=== PATIENT | female | born 1990 | race Caucasian/White ===

== ENCOUNTER 2017-01-04 15:35 | Emergency (ER) | payer BC ==
[~2017-01-04 15:35] MED LIST: Sodium Chloride 0.9% 1,000 ML BAG ONE
[2017-01-04] MEDS ORDERED: Lorazepam 2 MG/ML VIAL ONE (16:03)
[2017-01-04 16:21] LABS: #Basophils 0.1 thou/uL (0.0-0.2); #Eosinphils 0.1 thou/uL (0.0-0.7); #Lymphocytes 1.6 thou/uL (1.20-3.40); #Monocytes 0.6 thou/uL (0.11-0.59); #Neutrophils 5.2 thou/uL (1.40-6.50); %Basophils 1.3 % (0.0-1.0); %Eosinophils 1.7 % (0.0-10.0); %Lymphocytes 21.3 % (21.0-51.0); %Monocytes 8.2 % (0.0-10.0); %Neutrophils 67.6 % (42.0-75.0); Hemoglobin 15.3 g/dL (12.0-16.0); Mean Corpuscular HGB CONC 33.8 g/dL (32.0-36.0); Mean Corpuscular Hemoglobin 29.9 pg (27.0-31.0); Mean Corpuscular Volume 88.5 fl (81.0-99.0); Mean Platelet Volume 6.6 fL (7.4-10.4); Platelet Count 319 thou/uL (130-400); RBC Distribution Width 12.4 % (11.5-14.5); Red Blood Cell (RBC) Count 5.12 mill/uL (4.20-5.40); White Blood Cell (WBC) Count 7.7 thou/uL (4.8-10.8)
[2017-01-04 16:35] LABS: ALT (SGPT) 68 U/L (0-55); AST (SGOT) 32 U/L (5-34); Albumin 4.8 g/dL (3.5-5.0); Alcohol Less than 10 mg/dL (Less than 10); Alkaline Phosphatase 85 U/L (40-150); Anion Gap 17 mmol/L (10-20); BUN (Urea Nitrogen) 9 mg/dL (7.0-18.7); Bilirubin, Total 0.7 mg/dL (0.2-1.2); Calc. Creatinine Clearance 0 mL/min (70-130); Carbon Dioxide 21 mmol/L (22-29); Chloride 106 mmol/L (98-107); Estimated GFR-MDRD 77; Globulin 2.5 g/dL (2.4-3.5); Glucose 104 mg/dL (70-105); Potassium 3.8 mmol/L (3.5-5.1); Protein, Total 7.3 g/dL (6.0-8.3); Sodium 140 mmol/L (136-145)
[2017-01-04 17:13] LABS: Pregnancy Test - Urine (BHCG) NEGATIVE (NEGATIVE); Pregu Control Bar Appear? YES (CONTROL BAR); Specific Gravity 1.015 (1.002-1.036)
[2017-01-04 17:20] LABS: Amphetamine Not Detected (NotDetected); Barbiturates Screen Not Detected (NotDetected); Benzodiazepine Screen Detected (NotDetected); Cocaine Metabolite Screen Not Detected (NotDetected); Medtox Control Line Valid? VALID (VALID); Methadone Not Detected (NotDetected); Methamphetamine Not Detected (NotDetected); Opiate Screen Not Detected (NotDetected); Oxycodone Screen Not Detected (NotDetected); Phencyclidine (PCP) Not Detected (NotDetected); THC/Cannabinoid Screen Not Detected (NotDetected); Tricyclic Screen Not Detected (NotDetected)
== END 2017-01-04 20:10 | disposition home or self-care (01) ==
LOC: MADERS 15:35
DX: F41.1 Generalized anxiety disorder (principal); G43.909 Migraine, unspecified, not intractable, without status migrainosus; J45.909 Unspecified asthma, uncomplicated; F31.9 Bipolar disorder, unspecified; Z79.899 Other long term (current) drug therapy
CPT/HCPCS: 36415; 80053; 80306; 80307; 81025; 85025; 96374; J2060; J7050